=== PATIENT | male | born 1950 | race Hispanic/Latino ===

== ENCOUNTER 2020-01-27 06:40 | Day surgery (SDC) | payer OTHER ==
[2020-01-22 12:26] LABS: BASOPHILS % (AUTO) 0.3 % (0.0-5.0); EOSINOPHILS % (AUTO) 3.8 % (0.0-8.0); HEMATOCRIT 44.3 % (42-54); LYMPHOCYTES % (AUTO) 18.1 % (21.0-51.0); MEAN CORPUSCULAR HEMOGLOBIN 30.7 pg (27.0-33.0); MEAN CORPUSCULAR HGB CONC 33.4 g/dL (32.0-36.0); MEAN CORPUSCULAR VOLUME 91.9 fL (79-99); MONOCYTES % (AUTO) 6.2 % (3.0-13.0); NEUTROPHILS % (AUTO) 71.3 % (40.0-77.0); PLATELET COUNT (AUTO) 208 K/uL (130-400); RED BLOOD CELL COUNT(AUTO) 4.82 MIL/uL (4.50-6.20); RED CELL DISTRIBUTION WIDTH 13.6 % (11.0-15.5); WHITE BLOOD COUNT (AUTO) 9.1 K/uL (4.8-10.8)
[2020-01-22 12:41] LABS: POTASSIUM 3.5 mmol/L (3.5-5.1)
[2020-01-22 12:43] LABS: INR 1.15 (0.85-1.15); PARTIAL THROMBOPLASTIN TIME 29.6 SEC (26.3-35.5); PROTHROMBIN TIME 12.4 SEC (9.6-11.6)
[2020-01-27] VITALS (17 sets, daily range): BP systolic 101–126; BP diastolic 60–75
[~2020-01-27] VITALS: Ht 165.1 cm; Wt 104.9 kg
[~2020-01-27 06:40] MED LIST: ACET-66 PO; AMLO-258 PO; ASPI-1443 PO; BUPR75TA8 PO; BUSP5TAB3 PO; CHOL100034 PO; CYAN1000I IM; DOCU250C14 PO; DRON400T2 PO; EXENATIDE PO; FLUTICASONE PROP NASAL; GABA-529 PO; HYDR25TA PO; INSLAN SQ; LORA10TA7 PO; LOSA100T58 PO; MELA3CAP2 PO; METF-446 PO; RIVA20TA PO; SILD100T PO; TAMS-1 PO; Testosterone IM
[2020-01-27] MEDS ORDERED: SODIUM CHLORIDE 0.9% 1000ML 1,000 ML IV SCH (08:00)
[2020-01-27] MEDS ORDERED: SUCCINYLCHOLINE 200MG/10ML SYR ONE (08:12)
[2020-01-27] MEDS ORDERED: PROPOFOL 10 MG/ML 20ML VIAL IV ONE (08:12)
[2020-01-27] MEDS ORDERED: SUCR1TAB2 PO (08:30)
[2020-01-27] MEDS ORDERED: ATOR40TA69 PO (08:30)
--- NOTE | 2020-01-27 09:53 | NUR ---
DISCHARGE INSTRUCTIONS PROVIDED TO PATIENT'S SISTER (LYNDA SINGH) VIA TELEPHONE. FOLLOW UP APPOINTMENT PROVIDED AND POST CARDIOVERSION CARE INSTRUCTIONS PROVIDED, ALL QUESTIONS ANSWERED.
--- NOTE | 2020-01-27 10:00 | NUR ---
PATIENT DISCHARGED FROM FACILITY VIA WHEELCHAIR BY DEVIKA VALLEJO. PATIENT ASSISTED INTO PRIVATE VEHICLE DRIVEN BY SISTER.
--- NOTE | 2020-01-27 10:13 | NUR ---
CARDIOVERSION 0940 DR TOLBERT AND DR CONCEPCION IN ROOM WITH PATIENT 0842 TIMEOUT DONE BY NURSE TO VERIFY PROCEDURE WITH DR TOLBERT AND PATIENT 0843 FIRST DOSE OF PROPOFOL ADMINISTERED BY DR CONCEPCION IV PUSH 0845 SECOND DOSE OF PROPOFOL ADMINISTERED BY DR CONCEPCION IV PUSH 0847 THIRD DOSE OF PROPOFOL ADMINISTERED BY DR CONCEPCION IV PUSH 0848 SHOCK ADMINISTERED (CARDIOVERSION) [address] TOLBERT, PATIENT TOLERATED WELL. SLEEPING COMFORTABLE, VITAL SIGNS STABLE. HEART RATE RESTORED TO SINUS RHYTHM. 0900 DR T[address]BERT AND DR CONCEPCION OUT OF THE ROOM, RECOVERY STARTED.
== END 2020-01-27 10:00 | disposition home or self-care (01) ==
LOC: DAH 06:40
PROVIDERS: ATTEND Internal Medicine Cardiovascular Disease
DX: I48.19 Other persistent atrial fibrillation (principal); I42.8 Other cardiomyopathies; I25.10 Atherosclerotic heart disease of native coronary artery without angina pectoris; I10 Essential (primary) hypertension; E11.9 Type 2 diabetes mellitus without complications; E78.5 Hyperlipidemia, unspecified; G47.33 Obstructive sleep apnea (adult) (pediatric); Z99.89 Dependence on other enabling machines and devices; E66.01 Morbid (severe) obesity due to excess calories; Z68.36 Body mass index [BMI] 36.0-36.9, adult; Z20.828 Contact with and (suspected) exposure to other viral communicable diseases
CPT/HCPCS: 36415; 80048; 82948; 85025; 85610; 85730; 92960; 93005; A4215; A4216; A4221; A4222; A4223 ×3; A4606; C9803; J0330; J2704; U0003

== ENCOUNTER 2021-05-15 07:21 | Day surgery (SDC) | payer OTHER ==
[2021-05-11 12:42] LABS: BASOPHILS % (AUTO) 0.6 % (0.0-5.0); EOSINOPHILS % (AUTO) 2.3 % (0.0-8.0); HEMATOCRIT 42.3 % (42-54); LYMPHOCYTES % (AUTO) 22.1 % (21.0-51.0); MEAN CORPUSCULAR HEMOGLOBIN 29.8 pg (27.0-33.0); MEAN CORPUSCULAR HGB CONC 33.1 g/dL (32.0-36.0); NEUTROPHILS % (AUTO) 68.7 % (40.0-77.0); PLATELET COUNT (AUTO) 214 K/uL (130-400); RED CELL DISTRIBUTION WIDTH 13.8 % (11.0-15.5); WHITE BLOOD COUNT (AUTO) 7.7 K/uL (4.8-10.8)
[2021-05-11 12:52] LABS: INR 1.39 (0.85-1.15); PROTHROMBIN TIME 14.7 SEC (9.6-11.6)
[2021-05-11 12:53] LABS: PARTIAL THROMBOPLASTIN TIME 34.1 SEC (26.3-35.5)
[2021-05-11 12:58] LABS: CREATININE 1.4 mg/dL (0.5-1.5); POTASSIUM 4.3 mmol/L (3.5-5.1)
[~2021-05-15] VITALS: Ht 170.2 cm; Wt 98.0 kg
[2021-05-15] VITALS (14 sets, daily range): BP systolic 110–161; BP diastolic 61–98
[~2021-05-15 07:21] MED LIST changes: +0.9%NACL 1000ML 1,000 ML IV SCH; -AMLO-258 PO; +ASPI-1197 PO; -ASPI-1443 PO; +ATOR40TA71 PO; -CHOL100034 PO; -CYAN1000I IM; +DOCU240C25 PO; -DOCU250C14 PO; -DRON400T2 PO; +DRON400T7 PO; -EXENATIDE PO; -FLUTICASONE PROP NASAL; -GABA-529 PO; -INSLAN SQ; -MELA3CAP2 PO; +PIND10TA2 PO; -SILD100T PO
[2021-05-15] MEDS ORDERED: DEXTROSE 50%-WATER 50 ML DISP.SYRIN IV ONE (08:26)
== END 2021-05-15 11:10 | disposition home or self-care (01) ==
LOC: DAH 07:21
PROVIDERS: ATTEND Internal Medicine Cardiovascular Disease
DX: I48.19 Other persistent atrial fibrillation (principal); Z20.822 Contact with and (suspected) exposure to COVID-19; I10 Essential (primary) hypertension; E11.42 Type 2 diabetes mellitus with diabetic polyneuropathy; E78.5 Hyperlipidemia, unspecified; I25.10 Atherosclerotic heart disease of native coronary artery without angina pectoris; G47.33 Obstructive sleep apnea (adult) (pediatric); E66.01 Morbid (severe) obesity due to excess calories; K21.9 Gastro-esophageal reflux disease without esophagitis; Z79.899 Other long term (current) drug therapy; Z98.890 Other specified postprocedural states; Z95.5 Presence of coronary angioplasty implant and graft; Z79.82 Long term (current) use of aspirin; Z79.01 Long term (current) use of anticoagulants; Z68.33 Body mass index [BMI] 33.0-33.9, adult
CPT/HCPCS: 36415; 80048; 82948 ×4; 85025; 85610; 85730; 87635; 92960; 93005 ×2; A4215; A4216; A4221; A4222; A4223 ×3; A4606; A4663; C9803; J7070

== ENCOUNTER → 2022-02-08 | Outpatient (CLI) | payer OTHER ==
[2022-02-06 10:38] VITALS: BP 106/66
[2022-02-06 10:55] LABS: BASOPHILS % (AUTO) 0.6 % (0.0-5.0); EOSINOPHILS % (AUTO) 2.6 % (0.0-8.0); HEMATOCRIT 38.2 % (42-54); LYMPHOCYTES % (AUTO) 19.4 % (21.0-51.0); MEAN CORPUSCULAR HEMOGLOBIN 32.1 pg (27.0-33.0); MEAN CORPUSCULAR HGB CONC 33.8 g/dL (32.0-36.0); MONOCYTES % (AUTO) 5.2 % (3.0-13.0); NEUTROPHILS % (AUTO) 71.8 % (40.0-77.0); PLATELET COUNT (AUTO) 264 K/uL (130-400); RED BLOOD CELL COUNT(AUTO) 4.02 MIL/uL (4.50-6.20); RED CELL DISTRIBUTION WIDTH 14.6 % (11.0-15.5)
[2022-02-06 11:08] LABS: INR 0.99 (0.85-1.15); PROTHROMBIN TIME 10.8 SEC (9.6-11.6)
[2022-02-06 11:20] LABS: CREATININE 1.1 mg/dL (0.5-1.5)
[~2022-02-08] VITALS: Ht 170.2 cm; Wt 88.8 kg
[~2022-02-08] MED LIST changes: -0.9%NACL 1000ML 1,000 ML IV SCH; +CYAN10007 IM; +FLUT16H NASAL; +GABA-529 PO; +SEMA2PEN SQ
[2022-02-08 09:20] VITALS: BP 119/77
== END | disposition home or self-care (01) ==
LOC: EDSTATUS 02-06 10:00 → DAH 08:35
PROVIDERS: ATTEND Internal Medicine Cardiovascular Disease
DX: I48.19 Other persistent atrial fibrillation (principal); Z88.8 Allergy status to other drugs, medicaments and biological substances; Z79.82 Long term (current) use of aspirin; Z79.84 Long term (current) use of oral hypoglycemic drugs; Z79.01 Long term (current) use of anticoagulants; Z79.899 Other long term (current) drug therapy; Z53.8 Procedure and treatment not carried out for other reasons
CPT/HCPCS: 36415; 80048; 82948; 85025; 85610; 85730; 87426; 93005

== ENCOUNTER → 2023-10-03 | Outpatient (CLI) | payer OTHER ==
[2023-10-01 10:26] VITALS: BP 134/73; PULSE 68; RESP 16
[2023-10-01 10:31] LABS: BASOPHILS # (AUTO) 0.04 K/uL (0.00-0.20); BASOPHILS % (AUTO) 0.6 % (0.0-5.0); EOSINOPHILS % (AUTO) 1.6 % (0.0-8.0); HEMATOCRIT 39.4 % (42-54); IMMATURE GRANULOCYTE ABSOLUTE 0.03 K/uL (0-1); LYMPHOCYTES # (AUTO) 1.3 K/uL (1.0-4.8); LYMPHOCYTES % (AUTO) 19.6 % (21.0-51.0); MEAN CORPUSCULAR HEMOGLOBIN 32.9 pg (27.0-33.0); MEAN CORPUSCULAR HGB CONC 34.8 g/dL (32.0-36.0); MEAN CORPUSCULAR VOLUME 94.5 fL (79-99); MONOCYTES # (AUTO) 0.4 K/uL (0.1-1.0); MONOCYTES % (AUTO) 5.8 % (3.0-13.0); NEUTROPHILS # (AUTO) 4.6 K/uL (1.8-7.7); NEUTROPHILS % (AUTO) 71.9 % (40.0-77.0); PLATELET COUNT (AUTO) 108 K/uL (130-400); RED BLOOD CELL COUNT(AUTO) 4.17 MIL/uL (4.50-6.20); RED CELL DISTRIBUTION WIDTH 13.4 % (11.0-15.5); WHITE BLOOD COUNT (AUTO) 6.4 K/uL (4.8-10.8)
[2023-10-01 10:35] LABS: POTASSIUM 4.3 mmol/L (3.5-5.1)
[~2023-10-03] VITALS: Ht 167.6 cm; Wt 84.5 kg
[~2023-10-03] MED LIST changes: +0.9%NACL 1000ML 1,000 ML IV ONE; +AMIO200T68 PO; +CARB-182 OP; +CYAN-106 PO; -CYAN10007 IM; -DOCU240C25 PO; -DRON400T7 PO; +ERGO500093 PO; +ERYT1OIN7 OD; +LIDOCAINE PF 100MG/5ML (2%) SYRINGE 5ML ONE; -LOSA100T58 PO; +LOSA100T59 PO; +MELA3CAP2 PO; +PRED5DRO25 OD; +PROPOFOL 10 MG/ML 20ML VIAL IV ONE; -SEMA2PEN SQ; +SENN-316 PO; -Testosterone IM; +VALA500T42 PO
[2023-10-03 06:05] VITALS: BP 126/82; PULSE 68; RESP 17
== END | disposition home or self-care (01) ==
LOC: EDSTATUS 10-01 10:00 → LAB 05:51 → DAH 05:51
PROVIDERS: ATTEND Internal Medicine Cardiovascular Disease
DX: I48.19 Other persistent atrial fibrillation (principal); I42.8 Other cardiomyopathies; G47.33 Obstructive sleep apnea (adult) (pediatric); I10 Essential (primary) hypertension; E66.01 Morbid (severe) obesity due to excess calories; E11.42 Type 2 diabetes mellitus with diabetic polyneuropathy; K21.9 Gastro-esophageal reflux disease without esophagitis; E78.5 Hyperlipidemia, unspecified; Z53.8 Procedure and treatment not carried out for other reasons; Z95.5 Presence of coronary angioplasty implant and graft; Z68.29 Body mass index [BMI] 29.0-29.9, adult; Z79.4 Long term (current) use of insulin
CPT/HCPCS: 80048; 85025; 36415; 93005; 82948; J7030; J2001; J2704; J3490

== ENCOUNTER → 2023-10-21 | Outpatient (CLI) | payer OTHER ==
[~2023-10-21] VITALS: Ht 170.2 cm; Wt 87.8 kg
[~2023-10-21] MED LIST changes: -0.9%NACL 1000ML 1,000 ML IV ONE; +CHOL200059 PO; +GLARGINE SQ; -LIDOCAINE PF 100MG/5ML (2%) SYRINGE 5ML ONE; -PROPOFOL 10 MG/ML 20ML VIAL IV ONE; +SEMA1PEN3 SQ
[2023-10-21 12:27] LABS: BASOPHILS # (AUTO) 0.03 K/uL (0.00-0.20); BASOPHILS % (AUTO) 0.5 % (0.0-5.0); EOSINOPHILS # (AUTO) 0.11 K/uL (0.00-0.70); EOSINOPHILS % (AUTO) 1.9 % (0.0-8.0); HEMATOCRIT 38.9 % (42-54); IMMATURE GRANULOCYTE ABSOLUTE 0.02 K/uL (0-1); LYMPHOCYTES # (AUTO) 1.3 K/uL (1.0-4.8); LYMPHOCYTES % (AUTO) 21.3 % (21.0-51.0); MEAN CORPUSCULAR HEMOGLOBIN 33.2 pg (27.0-33.0); MEAN CORPUSCULAR HGB CONC 34.2 g/dL (32.0-36.0); MONOCYTES # (AUTO) 0.4 K/uL (0.1-1.0); MONOCYTES % (AUTO) 6.8 % (3.0-13.0); NEUTROPHILS # (AUTO) 4.1 K/uL (1.8-7.7); NEUTROPHILS % (AUTO) 69.2 % (40.0-77.0); PLATELET COUNT (AUTO) 166 K/uL (130-400); RED BLOOD CELL COUNT(AUTO) 4.01 MIL/uL (4.50-6.20); RED CELL DISTRIBUTION WIDTH 14.6 % (11.0-15.5); WHITE BLOOD COUNT (AUTO) 5.9 K/uL (4.8-10.8)
[2023-10-21 13:02] LABS: CREATININE 1.1 mg/dL (0.5-1.3)
[2023-10-21 14:08] VITALS: BP 160/82; PULSE 77; RESP 17
== END | disposition home or self-care (01) ==
LOC: EDSTATUS 10-03 09:30 → DAH 10:00
PROVIDERS: ATTEND Internal Medicine Cardiovascular Disease
DX: Z01.812 Encounter for preprocedural laboratory examination (principal); I48.19 Other persistent atrial fibrillation
CPT/HCPCS: 36415; 80048; 85025

== ENCOUNTER → 2023-11-08 | Outpatient (CLI) | payer OTHER ==
[~2023-11-08] MED LIST changes: -CARB-182 OP; -LORA10TA7 PO; -PRED5DRO25 OD
[2023-11-08 09:45] LABS: BASOPHILS # (AUTO) 0.05 K/uL (0.00-0.20); BASOPHILS % (AUTO) 0.7 % (0.0-5.0); EOSINOPHILS # (AUTO) 0.16 K/uL (0.00-0.70); EOSINOPHILS % (AUTO) 2.4 % (0.0-8.0); HEMATOCRIT 39.5 % (42-54); IMMATURE GRANULOCYTE ABSOLUTE 0.03 K/uL (0-1); LYMPHOCYTES # (AUTO) 1.5 K/uL (1.0-4.8); LYMPHOCYTES % (AUTO) 21.9 % (21.0-51.0); MEAN CORPUSCULAR HEMOGLOBIN 32.7 pg (27.0-33.0); MEAN CORPUSCULAR HGB CONC 34.2 g/dL (32.0-36.0); MEAN CORPUSCULAR VOLUME 95.6 fL (79-99); MONOCYTES # (AUTO) 0.4 K/uL (0.1-1.0); MONOCYTES % (AUTO) 6.2 % (3.0-13.0); NEUTROPHILS # (AUTO) 4.6 K/uL (1.8-7.7); NEUTROPHILS % (AUTO) 68.4 % (40.0-77.0); PLATELET COUNT (AUTO) 198 K/uL (130-400); RED BLOOD CELL COUNT(AUTO) 4.13 MIL/uL (4.50-6.20); RED CELL DISTRIBUTION WIDTH 14.6 % (11.0-15.5); WHITE BLOOD COUNT (AUTO) 6.8 K/uL (4.8-10.8)
[2023-11-08 09:58] LABS: CREATININE 1.3 mg/dL (0.5-1.3); POTASSIUM 3.7 mmol/L (3.5-5.1)
== END | disposition home or self-care (01) ==
LOC: EDSTATUS 09:00 → DAH 10:00
PROVIDERS: ATTEND Internal Medicine Cardiovascular Disease
DX: Z01.812 Encounter for preprocedural laboratory examination (principal); I48.19 Other persistent atrial fibrillation
CPT/HCPCS: 36415; 80048; 85025

== ENCOUNTER 2023-12-04 08:38 | Day surgery (SDC) | payer OTHER ==
[2023-12-02 11:39] VITALS: BP 150/71; PULSE 71; RESP 16
[2023-12-02 11:43] LABS: BASOPHILS # (AUTO) 0.02 K/uL (0.00-0.20); BASOPHILS % (AUTO) 0.3 % (0.0-5.0); EOSINOPHILS # (AUTO) 0.04 K/uL (0.00-0.70); EOSINOPHILS % (AUTO) 0.5 % (0.0-8.0); HEMATOCRIT 39.1 % (42-54); IMMATURE GRANULOCYTE ABSOLUTE 0.03 K/uL (0-1); LYMPHOCYTES # (AUTO) 1.2 K/uL (1.0-4.8); LYMPHOCYTES % (AUTO) 15.9 % (21.0-51.0); MEAN CORPUSCULAR HEMOGLOBIN 33.3 pg (27.0-33.0); MEAN CORPUSCULAR HGB CONC 34.3 g/dL (32.0-36.0); MONOCYTES # (AUTO) 0.5 K/uL (0.1-1.0); MONOCYTES % (AUTO) 6.6 % (3.0-13.0); NEUTROPHILS # (AUTO) 5.7 K/uL (1.8-7.7); NEUTROPHILS % (AUTO) 76.3 % (40.0-77.0); PLATELET COUNT (AUTO) 200 K/uL (130-400); RED BLOOD CELL COUNT(AUTO) 4.03 MIL/uL (4.50-6.20); RED CELL DISTRIBUTION WIDTH 13.6 % (11.0-15.5); WHITE BLOOD COUNT (AUTO) 7.5 K/uL (4.8-10.8)
[2023-12-02 11:53] LABS: CREATININE 1.3 mg/dL (0.5-1.3); POTASSIUM 3.8 mmol/L (3.5-5.1)
[~2023-12-04] VITALS: Ht 167.6 cm; Wt 90.1 kg
[2023-12-04] VITALS (7 sets, daily range): BP systolic 147–183; BP diastolic 72–96; PULSE 48–69; RESP 14–18
[~2023-12-04 08:38] MED LIST changes: -ERYT1OIN7 OD; -GLARGINE SQ
[2023-12-04] MEDS ORDERED: PROPOFOL 10 MG/ML 20ML VIAL IV ONE (11:26)
[2023-12-04] MEDS ORDERED: PHENYLEPHRINE HCL 10 MG/ML 1ML VIAL IV ONE (11:27)
== END 2023-12-04 12:50 | disposition home or self-care (01) ==
LOC: DAH 08:38
PROVIDERS: ATTEND Internal Medicine Cardiovascular Disease
DX: I48.19 Other persistent atrial fibrillation (principal); I10 Essential (primary) hypertension; K21.9 Gastro-esophageal reflux disease without esophagitis; G47.33 Obstructive sleep apnea (adult) (pediatric); I25.10 Atherosclerotic heart disease of native coronary artery without angina pectoris; E78.5 Hyperlipidemia, unspecified; E66.01 Morbid (severe) obesity due to excess calories; E11.40 Type 2 diabetes mellitus with diabetic neuropathy, unspecified; Z79.899 Other long term (current) drug therapy
CPT/HCPCS: 80048; 85025; 36415; 92960; 93005 ×2; 82948; J2704; J2371; A4620; A4215; A4222; A4221; A4663; A4216; A4606; A4223 ×3; J3490